=== PATIENT | female | born 1945 ===

== ENCOUNTER 2024-10-11 09:41 | Inpatient (IN) | payer MEDICARE, OTHER ==
[~2024-10-11] VITALS: Ht 167.6 cm; Wt 56.7 kg
[2024-10-11] MEDS ORDERED: hydrOXYzine hydrochloride 50 MG/ML VIAL IM PRN (11:10)
[2024-10-11] MEDS ORDERED: LORazepam 1 MG TAB PO PRN (11:10)
[2024-10-11] MEDS ORDERED: Ziprasidone Mesylate 20 MG VIAL IM PRN (11:10)
[2024-10-11] MEDS ORDERED: Magnesium Hydroxide 30 ML UDC PO PRN (11:15)
[2024-10-11] MEDS ORDERED: Water, Sterile 10 ML VIAL IM PRN (11:15)
[2024-10-11] MEDS ORDERED: MG-AL HYDROXIDE/SIMETICONE 30 ML UDC PO PRN (11:15)
[2024-10-11] MEDS ORDERED: ACETAMINOPHEN 325 MG TAB PO PRN (11:15)
[2024-10-11] MEDS ORDERED: NORVASC5 MG PO (11:24)
[2024-10-11] MEDS ORDERED: CALCIUM 600-VI1 EAC3 PO (11:26)
[2024-10-11] MEDS ORDERED: PROTONIX40 MG PO (11:28)
[2024-10-11] MEDS ORDERED: ROSUVASTATIN CA10 MG PO (11:29)
[2024-10-11] MEDS ORDERED: TRELEGY ELLIPT1 EAC1 INH (11:29)
[2024-10-11] MEDS ORDERED: VITAMIN D325 MCG PO (11:32)
[2024-10-11 16:19] VITALS: BP 109/76
[2024-10-11 20:00] VITALS: BP 123/68
[2024-10-11] MEDS ORDERED: fluvoxaMINE Maleate 50 MG TAB PO SCH (21:00)
[2024-10-11] MEDS ORDERED: Menthol/Zinc Oxide 4 GM THIN T SCH (21:00)
[2024-10-11] MEDS ORDERED: DIVALPROEX SODIUM 125 MG CAP PO SCH (21:00)
[2024-10-11] MEDS ORDERED: OLANZapine 2.5 MG TAB PO SCH (21:00)
[2024-10-12 06:48] LABS: BASO % 0.6 % (0.0-1.0); EOS # 0.1 10*3/uL (0.0-0.4); EOS % 1.7 % (1.0-4.0); HEMATOCRIT 44.4 % (37.0-47.0); MEAN CELL VOLUME 91.9 fl (81.0-99.0); MEAN CORPUSCULAR HGB 30.8 pg (27.0-31.0); MEAN CORPUSCULAR HGB CONC 33.6 g/dl (33.0-37.0); MEAN PLATELET VOLUME 10.2 fl (9.6-12.3); MONO # 0.7 10*3/uL (0.1-1.0); MONO % 12.3 % (3.0-9.0); NEUT # 3.8 10*3/uL (2.3-7.9); PLATELET COUNT AUTOMATED 196 10*3/uL (130-400); RED BLOOD COUNT 4.83 10*6/uL (4.10-5.10); RED CELL DISTRI WIDTH 12.4 % (0-14.5); WHITE BLOOD COUNT 5.4 10*3/uL (4.8-10.8)
[2024-10-12 07:29] LABS: ALKALINE PHOSPHATASE 69 U/L (46-116); BUN 23 mg/dl (9-23); CHLORIDE 106 mmol/L (98-107); CHOLESTEROL 134 mg/dL (<200); LDL CHOLESTEROL 73 mg/dL (9-159); POTASSIUM 3.4 mmol/L (3.4-5.1); SGPT/ALT 30 U/L (5-49); TOTAL PROTEIN 6.2 gm/dL (6.0-8.0); TRIGLYCERIDES 94 mg/dl (<150)
[2024-10-12 07:32] LABS: VITAMIN D, 25-HYDROXY 72.4 ng/mL (30-100)
[2024-10-12] MEDS ORDERED: DIVALPROEX SODIUM 125 MG CAP PO ONE (08:35)
[2024-10-12 08:46] VITALS: BP 125/68
[2024-10-12] MEDS ORDERED: TRELEGY INH SCH (09:00)
[2024-10-12] MEDS ORDERED: amLODIPine besylate 5 MG TAB PO SCH (09:00)
[2024-10-12] MEDS ORDERED: ATORVASTATIN CALCIUM 20 MG TAB PO SCH (09:00)
[2024-10-12] MEDS ORDERED: Rivastigmine Tartrate 4.6 MG/24 HR PATCH T SCH (09:00)
[2024-10-12] MEDS ORDERED: Vitamin D 1,000 IU TAB (25 MCG) PO SCH (09:00)
[2024-10-12] MEDS ORDERED: Pantoprazole Sodium 40 MG TAB PO SCH (09:00)
[2024-10-12 20:00] VITALS: BP 135/72
[2024-10-12] MEDS ORDERED: DIVALPROEX SODIUM 125 MG CAP PO SCH (21:00)
[2024-10-13 08:29] VITALS: BP 129/98
[2024-10-13 20:00] VITALS: BP 128/55
[2024-10-14 07:50] VITALS: BP 107/57
[2024-10-14] MEDS ORDERED: Rivastigmine Tartrate 9.5 MG/24 HR PATCH T SCH (09:00)
[2024-10-14 10:26] LABS: BILIRUBIN Negative (Negative); BLOOD Negative (Negative); CLARITY Clear (Clear); COLOR Yellow (Yellow); GLUCOSE Negative (Negative); KETONE 2+ (Negative); LEUKO ESTERASE Trace (Negative); NITRITE Negative (Negative); PH 5.5 (4.5-8.0); UROBILINOGEN 0.2 E.U./dl (0.0-1.0)
[2024-10-14 11:30] LABS: BACTERIA 1+
[2024-10-14 11:31] LABS: MUCOUS 1+
[2024-10-14] MEDS ORDERED: DIVALPROEX SODIUM 125 MG CAP PO SCH (13:00)
[2024-10-14 20:00] VITALS: BP 114/71
[2024-10-14] MEDS ORDERED: Memantine Hydrochloride 5 MG TAB PO SCH (21:00)
[2024-10-15 08:00] VITALS: BP 101/59
[2024-10-15] MEDS ORDERED: Albuterol Sulf/Ipratropium 3 ML VIAL NEB ONE (12:45)
[2024-10-15 20:00] VITALS: BP 120/53
[2024-10-15] MEDS ORDERED: RAMELTEON 8 MG TAB PO SCH (21:00)
[2024-10-16 08:00] VITALS: BP 131/70
[2024-10-16] MEDS ORDERED: MED. FROM HOME 1 EACH EA INH SCH (18:00)
[2024-10-16 20:00] VITALS: BP 113/84
[2024-10-17 08:29] VITALS: BP 96/53
[2024-10-17] MEDS ORDERED: Memantine Hydrochloride 5 MG TAB PO SCH (09:00)
[2024-10-17] MEDS ORDERED: IVIZIA 0.5% EYE5 ML OU (10:29)
[2024-10-17] MEDS ORDERED: MURO OU (12:11)
[2024-10-17] MEDS ORDERED: POVIDONE OPH SCH (14:00)
[2024-10-17] MEDS ORDERED: SODIUM CHLORIDE OPH SCH (21:00)
[2024-10-17] MEDS ORDERED: OLANZapine 7.5 MG TAB PO SCH (21:00)
[2024-10-18 08:00] VITALS: BP 90/60
[2024-10-18 11:00] LABS: BASO % 0.4 % (0.0-1.0); EOS # 0.1 10*3/uL (0.0-0.4); EOS % 1.5 % (1.0-4.0); HEMATOCRIT 49.7 % (37.0-47.0); MEAN CELL VOLUME 96.5 fl (81.0-99.0); MEAN CORPUSCULAR HGB 31.3 pg (27.0-31.0); MEAN CORPUSCULAR HGB CONC 32.4 g/dl (33.0-37.0); MEAN PLATELET VOLUME 10.4 fl (9.6-12.3); MONO # 0.8 10*3/uL (0.1-1.0); MONO % 11.6 % (3.0-9.0); NEUT # 5.3 10*3/uL (2.3-7.9); NEUT % 77.3 % (47.0-73.0); PLATELET COUNT AUTOMATED 167 10*3/uL (130-400); RED BLOOD COUNT 5.15 10*6/uL (4.10-5.10); RED CELL DISTRI WIDTH 12.5 % (0-14.5); WHITE BLOOD COUNT 6.9 10*3/uL (4.8-10.8)
[2024-10-18 11:35] VITALS: BP 117/92
[2024-10-18 12:25] LABS: ALKALINE PHOSPHATASE 82 U/L (46-116); BUN 15 mg/dl (9-23); CHLORIDE 106 mmol/L (98-107); POTASSIUM 3.7 mmol/L (3.4-5.1); SGPT/ALT 39 U/L (5-49); TOTAL PROTEIN 5.5 gm/dL (6.0-8.0)
[2024-10-18] MEDS ORDERED: SODIUM CHLORIDE 0.9% 1,000 ML IV SCH (14:35)
[2024-10-18 20:00] VITALS: BP 104/54
[2024-10-19] MEDS ORDERED: [UNRECOGNIZED DRUG - OTHER] OPH PRN (07:00)
[2024-10-19] MEDS ORDERED: SODIUM CHLORIDE OPH PRN (07:00)
[2024-10-19] MEDS ORDERED: MED. FROM HOME 1 EACH EA OPH PRN (07:35)
[2024-10-19 08:00] VITALS: BP 119/58
[2024-10-19 20:00] VITALS: BP 103/65
[2024-10-19] MEDS ORDERED: OLANZapine 2.5 MG TAB PO SCH ×2 (21:00)
[2024-10-19] MEDS ORDERED: Memantine Hydrochloride 10 MG TAB PO SCH (21:00)
[2024-10-20 08:00] VITALS: BP 102/51
[2024-10-20] MEDS ORDERED: Albuterol Sulf/Ipratropium 3 ML VIAL NEB PRN (12:00)
[2024-10-20 20:00] VITALS: BP 118/47
[2024-10-20] MEDS ORDERED: Memantine Hydrochloride 10 MG TAB PO SCH (21:00)
[2024-10-21 06:46] LABS: HEMATOCRIT 39.1 % (37.0-47.0); MEAN CELL VOLUME 94.9 fl (81.0-99.0); MEAN CORPUSCULAR HGB 30.8 pg (27.0-31.0); MEAN CORPUSCULAR HGB CONC 32.5 g/dl (33.0-37.0); MEAN PLATELET VOLUME 10.1 fl (9.6-12.3); PLATELET COUNT AUTOMATED 152 10*3/uL (130-400); RED BLOOD COUNT 4.12 10*6/uL (4.10-5.10); RED CELL DISTRI WIDTH 12.5 % (0-14.5); WHITE BLOOD COUNT 5.4 10*3/uL (4.8-10.8)
[2024-10-21 06:48] LABS: MANUAL DIFF REFLEX YES
[2024-10-21 07:03] LABS: ALKALINE PHOSPHATASE 64 U/L (46-116); BUN 11 mg/dl (9-23); CHLORIDE 107 mmol/L (98-107); POTASSIUM 3.3 mmol/L (3.4-5.1); SGPT/ALT 24 U/L (5-49); TOTAL PROTEIN 4.3 gm/dL (6.0-8.0); VALPROIC ACID (DEPAKENE) 60.4 ug/ml (50-100)
[2024-10-21 07:31] LABS: BASOPHILS 1 % (0-1); BURR CELLS FEW; OVALOCYTES FEW; PLATELET SUFFICIENCY NORMAL (NORMAL); POLYCHROMASIA SLIGHT; TOTAL CELLS COUNTED 100 #CELLS
[2024-10-21 09:05] VITALS: BP 121/59
[2024-10-21] MEDS ORDERED: POTASSIUM CHLORIDE 20 MEQ TAB PO ONE (09:55)
[2024-10-21 12:16] LABS: BILIRUBIN Negative (Negative); BLOOD 2+ (Negative); CLARITY Clear (Clear); COLOR Yellow (Yellow); GLUCOSE Negative (Negative); KETONE 1+ (Negative); LEUKO ESTERASE 2+ (Negative); NITRITE Negative (Negative); PH 7.5 (4.5-8.0)
[2024-10-21 12:58] LABS: RBC 31-40 rbc/hpf (0-2); WBC TNTC wbc/hpf (0-5)
[2024-10-21 12:59] LABS: BACTERIA 2+; MUCOUS 2+
[2024-10-21 20:00] VITALS: BP 138/100
[2024-10-21] MEDS ORDERED: CEFDINIR 300 MG CAP PO SCH (21:00)
[2024-10-22 08:00] VITALS: BP 93/68
[2024-10-22 09:13] LABS: MANUAL DIFF REFLEX YES; MEAN CELL VOLUME 97.4 fl (81.0-99.0); MEAN CORPUSCULAR HGB 30.7 pg (27.0-31.0); MEAN CORPUSCULAR HGB CONC 31.6 g/dl (33.0-37.0); PLATELET COUNT AUTOMATED 179 10*3/uL (130-400); RED BLOOD COUNT 4.62 10*6/uL (4.10-5.10); RED CELL DISTRI WIDTH 12.5 % (0-14.5); WHITE BLOOD COUNT 5.9 10*3/uL (4.8-10.8)
[2024-10-22 09:36] LABS: BASOPHILS 1 % (0-1); BURR CELLS MODERATE; POLYCHROMASIA SLIGHT; TOTAL CELLS COUNTED 100 #CELLS
[2024-10-22 09:37] LABS: OVALOCYTES FEW; PLATELET SUFFICIENCY NORMAL (NORMAL); SCHISTOCYTES FEW
[2024-10-22 09:39] LABS: BUN 11 mg/dl (9-23); CHLORIDE 106 mmol/L (98-107); POTASSIUM 3.8 mmol/L (3.4-5.1)
[2024-10-22 14:01] LABS: BILIRUBIN Negative (Negative); BLOOD 2+ (Negative); CLARITY Clear (Clear); COLOR Yellow (Yellow); GLUCOSE Negative (Negative); KETONE Trace (Negative); LEUKO ESTERASE 2+ (Negative); NITRITE Negative (Negative); PH 5.5 (4.5-8.0); UROBILINOGEN 0.2 E.U./dl (0.0-1.0)
[2024-10-22 14:22] LABS: BACTERIA 1+; MUCOUS 2+; WBC 16-20 wbc/hpf (0-5)
[2024-10-22 20:00] VITALS: BP 94/63
[2024-10-23 08:07] VITALS: BP 113/50
[2024-10-23 20:00] VITALS: BP 145/74
[2024-10-24 06:16] LABS: HEMATOCRIT 39.6 % (37.0-47.0); MEAN CELL VOLUME 96.6 fl (81.0-99.0); MEAN CORPUSCULAR HGB 30.7 pg (27.0-31.0); MEAN CORPUSCULAR HGB CONC 31.8 g/dl (33.0-37.0); MEAN PLATELET VOLUME 9.4 fl (9.6-12.3); PLATELET COUNT AUTOMATED 177 10*3/uL (130-400); RED CELL DISTRI WIDTH 12.6 % (0-14.5); WHITE BLOOD COUNT 5.7 10*3/uL (4.8-10.8)
[2024-10-24 06:36] LABS: MANUAL DIFF REFLEX YES
[2024-10-24 07:00] LABS: BUN 11 mg/dl (9-23); CHLORIDE 108 mmol/L (98-107); POTASSIUM 3.7 mmol/L (3.4-5.1)
[2024-10-24 07:13] LABS: PLATELET SUFFICIENCY NORMAL (NORMAL); TOTAL CELLS COUNTED 100 #CELLS
[2024-10-24] MEDS ORDERED: RIVASTIGMINE 13.3 MG/24 HR TDM T SCH (09:00)
[2024-10-24 09:01] VITALS: BP 109/54
[2024-10-24 20:00] VITALS: BP 103/67
[2024-10-25 08:00] VITALS: BP 110/40
[2024-10-25 20:00] VITALS: BP 107/57
[2024-10-26 08:00] VITALS: BP 100/59
[2024-10-26] MEDS ORDERED: Vitamin D (1,000 UNI PO (09:14)
[2024-10-26] MEDS ORDERED: MEMANTINE HCL10 MG PO (09:14)
[2024-10-26] MEDS ORDERED: RAMELTEON8 MG PO (09:14)
[2024-10-26] MEDS ORDERED: RIVASTIGMINE1 EAC2 T (09:14)
[2024-10-26] MEDS ORDERED: DIVALPROEX SOD125 M1 PO (09:14)
[2024-10-26] MEDS ORDERED: OLANZAPINE2.5 MG PO (09:14)
== END 2024-10-26 17:38 | disposition home or self-care (01) | DRG 885 ==
LOC: 3N 09:41
PROVIDERS: Counselor Professional; Registered Nurse; ADMIT Psychiatry & Neurology Psychiatry; ATTEND Psychiatry & Neurology Psychiatry
PROC: GZHZZZZ Group Psychotherapy (ICD-10-PCS; principal; 2024-10-12)
PROC: GZ51ZZZ Individual Psychotherapy, Behavioral (ICD-10-PCS; 2024-10-12)
DX: F31.60 Bipolar disorder, current episode mixed, unspecified (principal); F02.B2 Dementia in other diseases classified elsewhere, moderate, with psychotic disturbance; E44.0 Moderate protein-calorie malnutrition; K92.2 Gastrointestinal hemorrhage, unspecified; Z68.41 Body mass index [BMI] 40.0-44.9, adult; G30.9 Alzheimer's disease, unspecified; F22 Delusional disorders; E78.5 Hyperlipidemia, unspecified; K21.9 Gastro-esophageal reflux disease without esophagitis; I10 Essential (primary) hypertension; E55.9 Vitamin D deficiency, unspecified; J44.9 Chronic obstructive pulmonary disease, unspecified; R73.9 Hyperglycemia, unspecified; Z96.642 Presence of left artificial hip joint; Z87.891 Personal history of nicotine dependence; Z82.49 Family history of ischemic heart disease and other diseases of the circulatory system; Z79.899 Other long term (current) drug therapy